=== PATIENT | female | born 1995 | race Caucasian/White ===

== ENCOUNTER 2016-10-19 18:19 | Observation (INO) | payer OTHER ==
[~2016-10-19] VITALS: Ht 172.7 cm; Wt 60.1 kg
[2016-10-19] MEDS ORDERED: BIRTH CONTROL (18:26)
[2016-10-19 19:13] LABS: BASO % 0.3 % (0.0-2.0); EOS # 0.1 (0.0-0.7); EOS % 0.9 % (0-4.0); GRAN # 9.2 (1.4-6.5); GRAN % 75.9 % (42.2-75.2); HEMATOCRIT 36.8 % (37.0-47.0); HEMOGLOBIN 12.6 g/dl (12.5-16.0); LYMPH % 16.4 % (20.0-51.0); MEAN CELL VOLUME 89 fl (80.0-100.0); MEAN CORPUSCULAR HEMOGLOBIN 31 pg (27.0-31.0); MEAN CORPUSCULAR HGB CONC 34 g/dl (33.0-37.0); MEAN PLATELET VOLUME 11.1 fl (7.4-10.4); MONO # 0.8 (0.1-0.6); MONO % 6.2 % (1.7-9.3); PLATELET COUNT 211 K/mm3 (130-400); RED BLOOD COUNT 4.12 M/mm3 (4.10-5.30); REDCELL DISTRIBUTION WIDTH-CV 11.3 % (11.5-14.5); WHITE BLOOD COUNT 12.2 K/mm3 (4.8-10.8)
[2016-10-19 19:16] LABS: PH 7 (5-8); SQUAMOUS EPITHELIAL 0-2 /hpf; URINE APPEARANCE Clear; URINE BACTERIA Rare /hpf; URINE BILIRUBIN Negative (NEGATIVE); URINE BLOOD Negative (NEGATIVE); URINE COLOR Straw; URINE GLUCOSE Negative (NEGATIVE); URINE KETONE Negative (NEGATIVE); URINE RBC 0-2 /hpf; URINE UROBILINOGEN Negative (NEGATIVE); URINE WBC 0-2 /hpf
[2016-10-19 19:29] LABS: ADJUSTED CALCIUM 9.1 mg/dL (8.4-10.2); ALANINE AMINOTRANSFERASE 33 U/L (9-52); ALBUMIN 4.8 gm/dL (3.5-5.0); ALKALINE PHOSPHATASE 45 U/L (50-136); ANION GAP 14 mmol/L (7-16); BILIRUBIN,TOTAL 0.8 mg/dL (0.0-1.0); BLOOD UREA NITROGEN 9 mg/dL (7-17); C-REACTIVE PROTEIN < 0.5 mg/dL (0.0-0.9); CALCIUM 9.7 mg/dL (8.4-10.2); CARBON DIOXIDE 24 mmol/L (22-30); CHLORIDE 104 mmol/L (98-107); CREATININE, serum 0.59 mg/dL (0.52-1.25); GLUCOSE 98 mg/dL (74-106); LIPASE 89 U/L (23-300); POTASSIUM 3.8 mmol/L (3.4-5.0); SODIUM 142 mmol/L (137-145); TOTAL PROTEIN 8.6 gm/dL (6.4-8.2)
[2016-10-19 23:00] VITALS: BP 115/68; PULSE 107
[2016-10-19 23:15] VITALS: BP 109/68; PULSE 102
[2016-10-19 23:30] VITALS: BP 111/68; PULSE 103
[2016-10-19 23:45] VITALS: BP 122/72; PULSE 103
[2016-10-20 00:15] VITALS: BP 105/62; PULSE 95
[2016-10-20 00:45] VITALS: BP 107/62; PULSE 96
[2016-10-20 02:14] VITALS: BP 105/56; PULSE 120
[2016-10-20 06:20] VITALS: BP 114/70; PULSE 100; TEMP 98.4
[2016-10-20 09:04] VITALS: BP 108/60; PULSE 97; TEMP 98.9
[2016-10-20 13:40] VITALS: BP 112/66; PULSE 78; TEMP 97.3
[2016-10-20] MEDS ORDERED: NORCO 325 MG-51 TAB PO (15:37)
== END 2016-10-20 16:05 | disposition home or self-care (01) ==
LOC: COL.ER 18:19 → SURG 20:30
PROVIDERS: Emergency Medicine
DX: K35.80 Unspecified acute appendicitis (principal)
CPT/HCPCS: G0378; J1100; J1170; J1885; J1956; J2250; J2270; J2405; J2704; J2710; J2765; J3010; J7030; J7120; Q9967

== ENCOUNTER → 2016-10-26 | Outpatient (CLI) | payer OTHER ==
[~2016-10-26] MED LIST: BIRTH CONTROL; NORCO 325 MG-51 TAB PO
[2016-10-26 14:12] LABS: HEMATOCRIT 39.6 % (37.0-47.0); HEMOGLOBIN 13.7 g/dl (12.5-16.0); MEAN CELL VOLUME 89 fl (80.0-100.0); MEAN CORPUSCULAR HEMOGLOBIN 31 pg (27.0-31.0); MEAN CORPUSCULAR HGB CONC 35 g/dl (33.0-37.0); MEAN PLATELET VOLUME 10.3 fl (7.4-10.4); PLATELET COUNT 249 K/mm3 (130-400); RED BLOOD COUNT 4.44 M/mm3 (4.10-5.30); REDCELL DISTRIBUTION WIDTH-CV 11.6 % (11.5-14.5)
[2016-10-26 14:22] LABS: CREATININE, serum 0.63 mg/dL (0.52-1.25); POTASSIUM 4.2 mmol/L (3.4-5.0)
== END ==
LOC: COL.RAD 13:54
PROVIDERS: Surgery
DX: K59.09 Other constipation (principal); R10.84 Generalized abdominal pain

== ENCOUNTER 2017-06-25 17:03 | Emergency (ER) | payer OTHER ==
[~2017-06-25] VITALS: Ht 165.1 cm; Wt 59.1 kg
[2017-06-25 17:05] VITALS: BP 121/62; TEMP 99.1
[2017-06-25 17:33] LABS: BASO % 0.5 % (0.0-2.0); EOS # 0.1 (0.0-0.7); EOS % 1.7 % (0-4.0); GRAN # 3.6 (1.4-6.5); GRAN % 59.2 % (42.2-75.2); LYMPH # 1.8 (1.2-3.4); LYMPH % 30.4 % (20.0-51.0); MEAN CELL VOLUME 91 fl (80.0-100.0); MEAN CORPUSCULAR HGB CONC 34 g/dl (33.0-37.0); MEAN PLATELET VOLUME 9.9 fl (7.4-10.4); MONO # 0.5 (0.1-0.6); PLATELET COUNT 203 K/mm3 (130-400); RED BLOOD COUNT 3.78 M/mm3 (4.10-5.30); REDCELL DISTRIBUTION WIDTH-CV 11.7 % (11.5-14.5)
[2017-06-25 17:34] LABS: HEMATOCRIT 34.4 % (37.0-47.0); HEMOGLOBIN 11.7 g/dl (12.5-16.0); MEAN CORPUSCULAR HEMOGLOBIN 31 pg (27.0-31.0)
[2017-06-25] MEDS ORDERED: EFFEXOR-XR150 MG PO (17:40)
[2017-06-25] MEDS ORDERED: ATARAX 25MG25 MG/TAB PO (17:40)
[2017-06-25] MEDS ORDERED: SEROQUEL50 MG PO (17:40)
[2017-06-25 17:50] LABS: ADJUSTED CALCIUM 8.9 mg/dL (8.4-10.2); ALBUMIN 4.4 gm/dL (3.5-5.0); BILIRUBIN,TOTAL 0.4 mg/dL (0.0-1.0); CALCIUM 9.2 mg/dL (8.4-10.2); CREATININE, serum 0.63 mg/dL (0.52-1.25); POTASSIUM 3.7 mmol/L (3.4-5.0); TOTAL PROTEIN 7.7 gm/dL (6.4-8.2)
[2017-06-25 17:56] LABS: PH 8 (5-8); URINE APPEARANCE Cloudy; URINE BACTERIA None Seen /hpf; URINE BILIRUBIN Negative (NEGATIVE); URINE BLOOD Negative (NEGATIVE); URINE COLOR Yellow; URINE GLUCOSE Negative (NEGATIVE); URINE KETONE Negative (NEGATIVE); URINE RBC 0-2 /hpf; URINE WBC None Seen /hpf
[2017-06-25] MEDS ORDERED: ZOFRAN ODT8 MG PO (18:31)
[2017-06-25] MEDS ORDERED: NORCO 325 MG-51 TAB PO (18:31)
[2017-06-25 18:59] VITALS: PULSE 80
== END 2017-06-25 19:00 | disposition home or self-care (01) ==
LOC: COL.ER 17:03
PROVIDERS: Emergency Medicine
DX: R10.11 Right upper quadrant pain (principal); Z90.89 Acquired absence of other organs
CPT/HCPCS: J2270; J2405

== ENCOUNTER → 2017-06-26 | Outpatient (CLI) | payer OTHER ==
[~2017-06-26] MED LIST changes: +ATARAX 25MG25 MG/TAB PO; +EFFEXOR-XR150 MG PO; +SEROQUEL50 MG PO; +ZOFRAN ODT8 MG PO
== END ==
LOC: COL.RAD 08:48
DX: R10.11 Right upper quadrant pain (principal)

== ENCOUNTER → 2017-07-11 | Outpatient (CLI) | payer OTHER | LOC: COL.RAD 05:49 | DX: R10.11 Right upper quadrant pain (principal) | CPT/HCPCS: A9537 ==

== ENCOUNTER 2017-07-27 08:05 | Day surgery (SDC) | payer OTHER ==
[~2017-07-27] VITALS: Ht 165.1 cm; Wt 66.5 kg
[~2017-07-27 08:05] MED LIST changes: +PORTIA-28 30 MC1 TAB PO
[2017-07-27 08:32] VITALS: BP 110/73; PULSE 90; TEMP 98.5
[2017-07-27] MEDS ORDERED: PERCOCET 325 MG1 TA2 PO (08:43)
[2017-07-27] MEDS ORDERED: FIBER0.52 GM PO (08:44)
[2017-07-27 09:45] VITALS: BP 123/75; PULSE 86; TEMP 97.6
[2017-07-27 10:00] VITALS: BP 107/72; PULSE 86
[2017-07-27 10:15] VITALS: BP 107/75; PULSE 81
[2017-07-27 10:30] VITALS: BP 96/65; PULSE 92
[2017-07-27] MEDS ORDERED: PRILOTC (10:36)
== END 2017-07-27 11:08 | disposition home or self-care (01) ==
LOC: SDCO 08:05
DX: K29.30 Chronic superficial gastritis without bleeding (principal); F32.9 Major depressive disorder, single episode, unspecified; F41.9 Anxiety disorder, unspecified; F43.10 Post-traumatic stress disorder, unspecified
CPT/HCPCS: OP; J2250; J2405; J3010; J7030

== ENCOUNTER 2018-04-24 12:19 | Inpatient (IN) | payer OTHER ==
[2018-04-24] VITALS (40 sets, daily range): BP systolic 88–147; BP diastolic 51–90; PULSE 71–126; TEMP 97.8–98.5
[~2018-04-24] VITALS: Ht 165.1 cm; Wt 76.8 kg
[~2018-04-24 12:19] MED LIST changes: +FIBER0.52 GM PO; +PERCOCET 325 MG1 TA2 PO; +PRILOTC
[2018-04-24] MEDS ORDERED: ZOLOFT 25MG25 MG PO (12:45)
[2018-04-24] MEDS ORDERED: PRENATAL PO (12:45)
[2018-04-24] MEDS ORDERED: DICLEGIS PO (12:46)
[2018-04-24 15:14] LABS: BASO % 0.1 % (0.0-2.0); EOS % 0.1 % (0-4.0); GRAN # 14.8 (1.4-6.5); GRAN % 85.5 % (42.2-75.2); HEMOGLOBIN 11.6 g/dl (12.5-16.0); LYMPH # 1.5 (1.2-3.4); LYMPH % 8.4 % (20.0-51.0); MEAN CELL VOLUME 90 fl (80.0-100.0); MEAN CORPUSCULAR HEMOGLOBIN 31 pg (27.0-31.0); MEAN CORPUSCULAR HGB CONC 34 g/dl (33.0-37.0); MEAN PLATELET VOLUME 10.2 fl (7.4-10.4); MONO # 0.9 (0.1-0.6); MONO % 5.4 % (1.7-9.3); PLATELET COUNT 211 K/mm3 (130-400); RED BLOOD COUNT 3.74 M/mm3 (4.10-5.30); REDCELL DISTRIBUTION WIDTH-CV 12.8 % (11.5-14.5)
[2018-04-24 15:15] LABS: HEMATOCRIT 33.7 % (37.0-47.0)
[2018-04-25] VITALS (38 sets, daily range): BP systolic 96–150; BP diastolic 52–87; PULSE 58–129; TEMP 97.8–98.9
[2018-04-25] MEDS ORDERED: PERCOCET 325 MG1 TA2 PO (11:07)
[2018-04-25] MEDS ORDERED: MOTRIN 800800 MG/TAB PO (11:07)
[2018-04-26 08:30] VITALS: BP 99/66; PULSE 88; TEMP 97.6
[2018-04-26 17:08] VITALS: BP 94/58; PULSE 90; TEMP 97.9
[2018-04-26 20:00] VITALS: BP 94/61; PULSE 80; TEMP 97.8
[2018-04-27 09:27] VITALS: BP 91/57; PULSE 67; TEMP 97.9
[2018-04-27 16:27] VITALS: BP 104/63; PULSE 67; TEMP 98
[2018-04-27 20:56] VITALS: BP 117/55; PULSE 60; TEMP 98.4
[2018-04-28 08:00] VITALS: BP 121/80; PULSE 62; TEMP 98
[2018-04-28] MEDS ORDERED: PERCOCET 325 MG1 TA2 PO (08:38)
== END 2018-04-28 13:15 | disposition home or self-care (01) | DRG 766 ==
LOC: LDRO 12:19 → LDR 14:32 → OB 04-25 13:31
PROVIDERS: Student in an Organized Health Care Education/Training Program
PROC: 10D00Z1 Extraction of Products of Conception, Low, Open Approach (ICD-10-PCS; principal; 2018-04-25)
DX: O62.1 Secondary uterine inertia (principal); O76 Abnormality in fetal heart rate and rhythm complicating labor and delivery; Z3A.38 38 weeks gestation of pregnancy; Z37.0 Single live birth; F43.12 Post-traumatic stress disorder, chronic; O99.344 Other mental disorders complicating childbirth; F41.8 Other specified anxiety disorders; O99.02 Anemia complicating childbirth
CPT/HCPCS: J0690; J1885; J2175; J2210; J2370; J2400; J2405; J2590; J2795; J7120

== ENCOUNTER 2018-07-04 14:19 | Emergency (ER) | payer OTHER ==
[~2018-07-04] VITALS: Ht 165.1 cm; Wt 68.2 kg
[~2018-07-04 14:19] MED LIST changes: +DICLEGIS PO; +MOTRIN 800800 MG/TAB PO; +PRENATAL PO; +ZOLOFT 25MG25 MG PO
[2018-07-04 14:24] VITALS: BP 114/58; TEMP 98.3
[2018-07-04] MEDS ORDERED: ZOFRAN 4MG T4 MG/TAB PO (14:59)
[2018-07-04 15:45] VITALS: PULSE 55
[2018-07-04] MEDS ORDERED: LEXAPRO20 MG PO (15:48)
== END 2018-07-04 15:45 | disposition home or self-care (01) ==
LOC: COL.ER 14:19
DX: S06.0X0A Concussion without loss of consciousness, initial encounter (principal); F32.9 Major depressive disorder, single episode, unspecified; F41.9 Anxiety disorder, unspecified; W22.8XXA Striking against or struck by other objects, initial encounter; Y92.89 Other specified places as the place of occurrence of the external cause

== ENCOUNTER 2018-11-06 12:57 | Emergency (ER) | payer OTHER ==
[~2018-11-06] VITALS: Ht 165.1 cm; Wt 68.2 kg
[~2018-11-06 12:57] MED LIST changes: -DESYREL 100MG100 MG PO; -ESTARYLLA 35 MC1 TAB PO; -VIBRYD PO
[2018-11-06 13:00] VITALS: BP 121/57
[2018-11-06] MEDS ORDERED: ESTARYLLA 35 MC1 TAB PO (13:08)
[2018-11-06] MEDS ORDERED: DESYREL 100MG100 MG PO (13:08)
[2018-11-06] MEDS ORDERED: VIBRYD PO (13:09)
[2018-11-06 13:33] LABS: BASO % 0.2 % (0.0-2.0); EOS # 0.1 (0.0-0.7); EOS % 1.1 % (0-4.0); GRAN # 4.4 (1.4-6.5); GRAN % 66.3 % (42.2-75.2); HEMATOCRIT 32.7 % (37.0-47.0); HEMOGLOBIN 11.3 g/dl (12.5-16.0); LYMPH # 1.8 (1.2-3.4); LYMPH % 27.4 % (20.0-51.0); MEAN CELL VOLUME 88 fl (80.0-100.0); MEAN CORPUSCULAR HEMOGLOBIN 30 pg (27.0-31.0); MEAN CORPUSCULAR HGB CONC 35 g/dl (33.0-37.0); MEAN PLATELET VOLUME 10.6 fl (7.4-10.4); MONO # 0.3 (0.1-0.6); MONO % 4.7 % (1.7-9.3); PLATELET COUNT 204 K/mm3 (130-400); RED BLOOD COUNT 3.72 M/mm3 (4.10-5.30); REDCELL DISTRIBUTION WIDTH-CV 12.3 % (11.5-14.5)
[2018-11-06 13:46] LABS: ALBUMIN 3.9 gm/dL (3.5-5.0); BILIRUBIN,TOTAL 0.5 mg/dL (0.0-1.0); CREATININE, serum 0.58 mg/dL (0.52-1.25); POTASSIUM 3.7 mmol/L (3.4-5.0); TOTAL PROTEIN 7.2 gm/dL (6.4-8.2)
[2018-11-06 15:00] VITALS: PULSE 67; TEMP 97.7
== END 2018-11-06 15:00 | disposition home or self-care (01) ==
LOC: COL.ER 12:57
PROVIDERS: Family Medicine
DX: R09.1 Pleurisy (principal); Z98.890 Other specified postprocedural states; Z90.89 Acquired absence of other organs
CPT/HCPCS: Q9967

== ENCOUNTER → 2018-11-06 | Outpatient (CLI) | payer OTHER ==
[~2018-11-06] MED LIST changes: +DESYREL 100MG100 MG PO; +ESTARYLLA 35 MC1 TAB PO; +LEXAPRO20 MG PO; +VIBRYD PO; +ZOFRAN 4MG T4 MG/TAB PO
== END ==
LOC: COL.LAB 11:28
DX: R07.9 Chest pain, unspecified (principal)

== ENCOUNTER → 2018-11-15 | Outpatient (CLI) | payer OTHER | LOC: COL.RAD 13:24 | DX: J98.6 Disorders of diaphragm (principal); R07.1 Chest pain on breathing ==

== ENCOUNTER → 2018-12-26 | Outpatient (CLI) | payer OTHER ==
[~2018-12-26] MED LIST changes: +DESYREL 100MG100 MG PO; +ESTARYLLA 35 MC1 TAB PO; +VIBRYD PO
[2018-12-26 13:49] LABS: CREATININE, serum 0.68 (0.52-1.25)
== END ==
LOC: COL.LAB 13:23
DX: R07.89 Other chest pain (principal)